=== PATIENT | female | born 1980 | race Asian ===

== ENCOUNTER 2017-06-27 10:14 | Emergency (ER) | END 2017-06-27 12:28 | disposition home or self-care (01) ==

== ENCOUNTER 2018-12-19 17:14 | Emergency (ER) | payer BC, OTHER ==
[~2018-12-19] VITALS: Ht 154.9 cm; Wt 57.0 kg
[2018-12-19 17:20] VITALS: BP 128/68; PULSE 76; RESP 20; Ht 154.9 cm; Wt 57.0 kg
--- NOTE | 2018-12-19 17:21 | ERD ---
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 No documented history of infectious disease of the patient. ROS All systems reviewed and are negative except as per history of present illness. Allergies Allergies: Coded Allergies: No Known Allergy (Unverified , 06/27/17) PMhx/Soc History of Surgery: Yes () Anesthesia Reaction: No Hx Neurological Disorder: No Hx Respiratory Disorders: No Hx Cardiac Disorders: No Hx Psychiatric Problems: No Hx Miscellaneous Medical Probl: No Hx Alcohol Use: No Hx Substance Use: No Hx Tobacco Use: No Physical Exam Physical Exam Left thumb no active bleeding. Procedures/MDM Status post needlestick from used needle. Blood drawn from both patient 0 and this patient. Risk assessment done regarding prep therapy will defer until blood results Departure Diagnosis: Primary Impression: Needlestick injury accident Condition: Stable JACQUE CAMACHO MD Dec 19, 2018 17:21
== END 2018-12-19 18:00 | disposition home or self-care (01) ==
LOC: E/R 17:14
DX: S61.032A Puncture wound without foreign body of left thumb without damage to nail, initial encounter (principal); W46.0XXA Contact with hypodermic needle, initial encounter; Y92.89 Other specified places as the place of occurrence of the external cause
CPT/HCPCS: 80076; 85025; 86703; 86706; 86803; 87340; 99283